=== PATIENT | female | born 1985 | race Caucasian/White ===

== ENCOUNTER 2016-10-10 22:02 | Emergency (ER) | payer SELFPAY ==
[~2016-10-10] VITALS: Ht 157.5 cm; Wt 57.0 kg
[~2016-10-10 22:02] MED LIST: HYDR-3498 PO; IBUP-1542 PO; NO MEDS; ONDA4TAB14 PO
[2016-10-10 22:57] VITALS: Ht 157.5 cm; Wt 57.0 kg
== END 2016-10-11 02:35 | disposition left against medical advice (07) ==
LOC: FTE 22:02
DX: Z53.21 Procedure and treatment not carried out due to patient leaving prior to being seen by health care provider (principal)

== ENCOUNTER 2016-10-30 20:30 | Emergency (ER) | payer SELFPAY ==
[~2016-10-30] VITALS: Ht 157.5 cm; Wt 58.1 kg
[2016-10-30 20:33] VITALS: Ht 157.5 cm; Wt 58.1 kg
[2016-10-31] MEDS ORDERED: ACETAMINOPHEN 325 MG TAB PO STA (00:06)
--- NOTE | 2016-10-31 00:21 | ERD ---
ER Documentation Chief Complaint Date/Time DATE: 10/31/16 TIME: 00:19 Chief Complaint 16 weeks , pelvic pain, back pain HPI Patient is a 31-year-old female who is who presents to the ED with left pelvic pain. Her last normal menstrual period was 07/08/17. She states that she is currently on Macrobid and has 3 doses left for UTI infection. She denies vaginal bleeding, cramping. She denies fever chills, nausea, vomiting or diarrhea, or Constipation. She denies abdominal pain. Denies abnormal vaginal discharge or itchiness. up to date with vaccines. denies headache, dizziness. no other complaints. ROS All systems reviewed and are negative except as per history of present illness. Medications Home Meds Active Scripts Ondansetron (Ondansetron Odt) 4 Mg Tab.rapdis, 4 MG PO Q6H Y for NAUSEA AND/OR VOMITING, #10 TAB Prov:MICH GARCIA. REPAIR CAMERAMAN 08/18/16 Hydrocodone Bit-Acetaminophen* ([place]*) 5-325 Mg Tab, 1 TAB PO Q6 Y for PAIN, # 15 TAB Prov:WILEY OBRIEN 12/01/15 Ibuprofen* (Ibuprofen*) 600 Mg Tablet, 600 MG PO Q6 for 15 Days, TAB Prov:CAMILLEWILEY C 12/01/15 Reported Medications [No Meds] No Conflict Check 04/30/11 Allergies Allergies: Coded Allergies: No Known Drug Allergy (Verified Allergy, Unknown, 04/30/11) No Known Allergy (Verified , 04/30/11) PMhx/Soc History of Surgery: Yes (appendectomy) Anesthesia Reaction: No Hx Neurological Disorder: No Hx Respiratory Disorders: Yes Hx Cardiac Disorders: No Hx Psychiatric Problems: No Hx Miscellaneous Medical Probl: No Hx Alcohol Use: No Hx Substance Use: No Hx Tobacco Use: No FmHx Family History: No coronary disease, No diabetes, No other Physical Exam Vitals Vital Signs Date Time Temp Pulse Resp B/P Pulse Ox O2 Delivery O2 Flow Rate FiO2 10/31/16 02:44 98.2 66 98/54 100 Room Air 10/30/16 20:33 98.9 74 20 116/58 100 Physical Exam GENERAL: Well-developed, well-nourished female. Appears in no acute distress. NECK: Supple. No lymphadenopathy or thyromegaly. No meningismus. negative kernig. negative brudinski. LUNG: Clear to auscultation bilaterally. No rhonchi, wheezing, rales or coarse breath sounds. HEART: Regular rate and rhythm. No murmurs, rubs or gallops. ABDOMEN: No scars, ecchymosis or rashes noted. Soft, nontender, and nondistended. Positive bowel sounds in all four quadrants. No rebound tenderness , no guarding. (-) McBurneys point tenderness. No CVA tenderness. tednerness in left pelvic area. BACK: No midline tenderness. Extremities: Equal pulses bilaterally. No peripheral clubbing, cyanosis or edema. No unilateral leg swelling. NEUROLOGIC: Alert and oriented. Moving all four extremities. 5/5 strength in all extremities. Normal speech. Steady gait. SKIN: Normal color. Warm and dry. No rashes or lesions. Capillary refill < 2 seconds Result Diagram: 10/31/16 0020 Results 24 hrs Laboratory Tests Test 10/31/16 00:20 10/31/16 00:23 Basophils # 0.010^3/ul Basophils % 0.3% Beta HCG, Quantitative 82166.0mIU/ml Eosinophils # 0.610^3/ul Eosinophils % 5.8% Hematocrit 33.8% Hemoglobin 11.6g/dl Lymphocytes # 2.810^3/ul Lymphocytes % 28.4% Mean Corpuscular Hemoglobin 29.5pg Mean Corpuscular Hemoglobin Concent 34.3g/dl Mean Corpuscular Volume 86.0fl Mean Platelet Volume 9.4fl Monocytes # 0.610^3/ul Monocytes % 5.8% Neutrophils # 5.910^3/ul Neutrophils % 59.4% Nucleated Red Blood Cells # 0.010^3/ul Nucleated Red Blood Cells % 0.0/100WBC Platelet Count 81633^3/UL Red Blood Count 3.9310^6/ul Red Cell Distribution Width 12.7% White Blood Count 9.910^3/ul Urine Bilirubin NEGATIVE Urine Clarity CLEAR Urine Color LT. YELLOW Urine Glucose NEGATIVE% Urine Hemoglobin NEGATIVE Urine Ketones NEGATIVE Urine Leukocyte Esterase NEGATIVE Urine Nitrite NEGATIVE Urine Specific [place] 1.010 Urine Total Protein NEGATIVE Urine Urobilinogen 0.2 E.U./dL Urine pH 6.0 Current Medications Medications (Trade) Dose Ordered Sig/Joellen Route PRN Reason Start Time Stop Time Status Last Admin Dose Admin Acetaminophen (Tylenol Tab) 650 mg ONCE STAT PO 10/31/16 00:06 10/31/16 00:07 DC 10/31/16 00:30 Procedures/MDM ER COURSE: I kept the patient and/or family informed of laboratory and diagnostic imaging results throughout the emergency room course. EKG, MONITORS, & DIAGNOSTIC IMAGING: [place] [id number] Radiology Main Line: [phone] DIAGNOSTIC IMAGING REPORT Patient: BABITA CRUZ : 1985 Age: 31 Sex: F MR #: [id number] DOS: 10/31/16 0006 Ordering MD: MALU MARSH PA-C Location: [facility] Room/Bed: PROCEDURE: US OB. CLINICAL INDICATION: Vaginal bleeding, pain. Clinical estimate gestational age is 16 weeks 3 days with estimated date of delivery 04/14/2017. TECHNIQUE: Multiple sonographic images of the pelvis were obtained. Transabdominal imaging only was performed. The images were reviewed on a PACS workstation. COMPARISON: 10/03/2016 FINDINGS: There is a single live intrauterine gestation. Cardiac activity is present with 137 beats per minute. There is a variable presentation. Measurements were made in order to determine age. The results are as follows: BPD = 3.54 cm, 16 weeks 6 days HC = 13.04 cm, 16 weeks 5 days AC = 11.88 cm, 17 weeks 4 days FL = 2.34 cm, 17 weeks 0 days. Estimated gestational age of approximately 17 weeks 0 days. The estimated date of delivery is 04/10/2017. The EFW = 187.42 g, 0 pounds 7 ounces, 90.9% The placenta is posterior and grade 0. There is no evidence for an abruption. There is a normal amount of amniotic fluid with a maximum vertical pocket of 3.7 cm. IMPRESSION: 1. Single live intrauterine gestation of approximately 17 weeks 0 days based on ultrasound measurements. 2. The estimated date of delivery is 04/10/2017. RPTAT: HJES .Adolfo Yip MD, Date Time Electronically viewed and signed by .Adolfo Yip MD, on 10/31/2016 01:06 .S/ CC: MALU MARSH PA-C MEDICATIONS: Tylenol. Tolerated well with no adverse reaction. LAB INTERPRETATION: CBC showed no evidence of systemic infection or severe anemia. . UA showed no evidence of leukocytes, nitrites or hematuria. MEDICAL DECISION MAKING: This is a 31 year old female who is who presents with pelvic pain. Vital signs were reviewed. Patient is afebrile. Patient is not hypoxic. Patient ultrasound as read by radiologist shows Single live intrauterine gestation of approximately 17 weeks 0 days based on ultrasound measurements. Low suspicion for ovarian torsion, PID, tuboovarian abscess, ectopic , bowel obstruction, pyelonephritis, UTI, appendicitis, cervicitis, septic , molar , HELLP syndrome, preeclampsia, eclampsia, placenta previa, placenta abruptia. DISCHARGE: At this time, patient is stable for discharge and outpatient management with no new complaints during the ER course. Patient was sent home with copies of imaging studies and lab and to follow up with her OB doctor. Patient will be discharged home with instructions to recheck for new or worsening symptoms such as fever, nausea, weakness, LOC and to follow up with primary care in the next 1 -2 days. Patient was advised to return to the ER for any new or worsening symptoms. Plan was discussed and patient and/or family understands and agrees. Home instructions were given. Departure Diagnosis: Primary Impression: Pelvic pain Condition: Stable MALU MARSH PA-C Oct 31, 2016 00:21
[2016-10-31 00:37] LABS: ADD SCAN DIFF NO
[2016-10-31 00:48] LABS: BASOPHILS % 0.3 % (0.0-2.0); EOSINOPHILS # 0.6 10^3/ul (0.0-0.5); EOSINOPHILS % 5.8 % (0.0-7.0); HEMATOCRIT 33.8 % (37.0-47.0); HEMOGLOBIN 11.6 g/dl (12.0-16.0); LYMPHOCYTES # 2.8 10^3/ul (0.8-2.9); LYMPHOCYTES % 28.4 % (15.0-51.0); MEAN CORPUSCULAR HEMOGLOBIN 29.5 pg (29.0-33.0); MEAN CORPUSCULAR HGB CONC 34.3 g/dl (32.0-37.0); MEAN PLATELET VOLUME 9.4 fl (7.4-10.4); MONOCYTE # 0.6 10^3/ul (0.3-0.9); MONOCYTES % 5.8 % (0.0-11.0); NEUTROPHIL # 5.9 10^3/ul (1.6-7.5); NEUTROPHILS % 59.4 % (39.0-77.0); PLATELET COUNT 329 10^3/UL (140-415); RED BLOOD COUNT 3.93 10^6/ul (4.20-5.40); RED CELL DISTRIBUTION WIDTH 12.7 % (11.5-14.5); WHITE BLOOD COUNT 9.9 10^3/ul (4.8-10.8)
[2016-10-31 00:54] LABS: ADD UMIC NO; URINE BILIRUBIN (Dip) NEGATIVE (NEGATIVE); URINE BLOOD (Dip) NEGATIVE (NEGATIVE); URINE COLOR LT. YELLOW (YELLOW); URINE GLUCOSE (Dip) NEGATIVE (NEGATIVE); URINE KETONES (Dip) NEGATIVE (NEGATIVE); URINE LEUKOCYTE ESTERASE (Dip) NEGATIVE (NEGATIVE); URINE NITRITE (Dip) NEGATIVE (NEGATIVE); URINE TOTAL PROTEIN (Dip) NEGATIVE (NEGATIVE); URINE UROBILINOGEN (Dip) 0.2 E.U./dL (0.1-1.0)
--- NOTE | 2016-10-31 01:06 | RADRPT ---
PROCEDURE: US OB. CLINICAL INDICATION: Vaginal bleeding, pain. Clinical estimate gestational age is 16 weeks 3 days with estimated date of delivery 04/14/2017. TECHNIQUE: Multiple sonographic images of the pelvis were obtained. Transabdominal imaging only w as performed. The images were reviewed on a PACS workstation. COMPARISON: 10/03/2016 FINDINGS: There is a single live intrauterine gestation. Cardiac activity is present with 137 beats per minut e. There is a variable presentation. Measurements were made in order to determine age. The results are as follows: BPD = 3.54 cm, 16 weeks 6 days HC = 13.04 cm, 16 weeks 5 days AC = 11.88 cm, 17 weeks 4 days FL = 2.34 cm, 17 weeks 0 days. Estimated gestational age of approximately 17 weeks 0 days. The estimated date of delivery is 04/10/2017. The EFW = 187.42 g, 0 pounds 7 ounces, 90.9% The placenta is posterior and grade 0. There is no evidence for an abruption. There is a normal amount of amniotic fluid with a maximum vertical pocket of 3.7 cm. IMPRESSION: 1. Single live intrauterine gestation of approximately 17 weeks 0 days based on ultrasound measurem ents. 2. The estimated date of delivery is 04/10/2017. RPTAT: HJES .Adolfo Yip MD, MD Date Time Electronically viewed and signed by .Adolfo Yip MD, on 10/31/2016 01:06 .S/
[2016-10-31 02:44] VITALS: BP 98/54; PULSE 66; TEMP 98.2
== END 2016-10-31 02:51 | disposition home or self-care (01) ==
LOC: FTE 20:30
DX: O26.892 Other specified pregnancy related conditions, second trimester (principal); R10.2 Pelvic and perineal pain; Z3A.17 17 weeks gestation of pregnancy
CPT/HCPCS: 76801; 81003; 84702; 85025; 86900; 86901

== ENCOUNTER 2016-11-14 12:45 | Emergency (ER) | payer MEDICAID ==
[~2016-11-14] VITALS: Ht 157.5 cm; Wt 58.0 kg
[2016-11-14 12:50] VITALS: Ht 157.5 cm; Wt 58.0 kg
[2016-11-14 16:16] LABS: ADD SCAN DIFF NO
[2016-11-14 16:19] LABS: BASOPHILS % 0.2 % (0.0-2.0); EOSINOPHILS # 0.5 10^3/ul (0.0-0.5); HEMATOCRIT 34.1 % (37.0-47.0); HEMOGLOBIN 11.6 g/dl (12.0-16.0); LYMPHOCYTES % 19.8 % (15.0-51.0); MEAN CORPUSCULAR HEMOGLOBIN 29.6 pg (29.0-33.0); MEAN PLATELET VOLUME 9.4 fl (7.4-10.4); MONOCYTE # 0.5 10^3/ul (0.3-0.9); MONOCYTES % 5.4 % (0.0-11.0); NEUTROPHIL # 6.9 10^3/ul (1.6-7.5); NEUTROPHILS % 69.3 % (39.0-77.0); PLATELET COUNT 343 10^3/UL (140-415); RED BLOOD COUNT 3.92 10^6/ul (4.20-5.40)
[2016-11-14] MEDS ORDERED: IBUPROFEN 200 MG TAB PO ONE (16:30)
--- NOTE | 2016-11-14 16:31 | RADRPT ---
PROCEDURE: US OB. CLINICAL INDICATION: Trauma due to a fall. Decreased motion. TECHNIQUE: Multiple sonographic images of the uterus were obtained. The images were revi ewed on a PACS workstation. COMPARISON: No prior studies are available for comparison. FINDINGS: There is a single live intrauterine gestation. heart rate is 152 beats per minute. Measurements were made in order to determine age. The results are as follows: BPD = 4.37 cm. HC = 15.82 cm. AC = 14.28 cm. FL = 3.02 cm. Estimated weight is 291 +/- 44 grams. LMP growth percentile is 70 %. Cervical length is 3.3 cm. The cervix is closed. The maximal denzel tical pocket of amniotic fluid is 7.7 cm. Menstrual age by ultrasound dates is 19 weeks 2 days. The estimated date of delivery is 04/08/2017. Position is variable and placenta is posterior right. There is no evidence for an abruption or place nta previa. IMPRESSION: 1. Single live intrauterine gestation of 19 weeks 2 days menstrual age by ultrasound dates. 2. The estimated date of delivery is 04/08/2017. RPTAT: QQ .Xavier Marina MD, Date Time Electronically viewed and signed by .Xavier Marina MD, on 11/14/2016 16:30 .R/
[2016-11-14 16:32] LABS: ALBUMIN 3.9 g/dl (3.3-4.9)
[2016-11-14 16:33] LABS: POTASSIUM 4.4 mmol/L (3.5-5.1)
[2016-11-14 16:35] LABS: ALBUMIN/GLOBULIN RATIO 1.18; BILIRUBIN,INDIRECT 0.3 mg/dl (0-1.1); BILIRUBIN,TOTAL 0.3 mg/dl (0.2-1.3); CREATININE 0.49 mg/dl (0.44-1.00); TOTAL PROTEIN 7.2 g/dl (6.1-8.1)
[2016-11-14 16:36] LABS: CALCIUM 9.3 mg/dl (8.4-10.2)
[2016-11-14 17:45] VITALS: BP 108/63; PULSE 63; RESP 20; TEMP 98.3
--- NOTE | 2016-11-14 18:35 | ERA ---
ER Documentation Chief Complaint Date/Time DATE: 11/14/16 TIME: 18:28 Chief Complaint CAME IN VIA INTAKE DUE FALL DUE TO DIZZY WITH ABD PAIN AND ESCORIATIONS HPI Patient presented 2 hours post fall caused by dizziness. Patient is 19 weeks . Patient denies knockout. Does report an adrenaline-like blackout where she cannot remember all the details because everything happened so fast. Does not think she hit her head and is not 100% sure if her abdomen was either which is what she is most concerned about because of her patient denies any chest pain, shortness of breath, leg swelling, headaches, dehydration , change in diet, palpitations. Patient was outside walking down the stairs at the time of the injury. patient did not fall down the stairs. ROS All systems reviewed and are negative except as per history of present illness. Medications Home Meds Active Scripts Ondansetron (Ondansetron Odt) 4 Mg Tab.rapdis, 4 MG PO Q6H Y for NAUSEA AND/OR VOMITING, #10 TAB Prov:MICH GARCIA FURNACE INSTALLER 08/18/16 Hydrocodone Bit-Acetaminophen* ([place]*) 5-325 Mg Tab, 1 TAB PO Q6 Y for PAIN, # 15 TAB Prov:CAMILLETABITHAWILEY C 12/01/15 Ibuprofen* (Ibuprofen*) 600 Mg Tablet, 600 MG PO Q6 for 15 Days, TAB Prov:CAMILLE,WILEY C 12/01/15 Reported Medications [No Meds] No Conflict Check 04/30/11 Allergies Allergies: Coded Allergies: No Known Drug Allergy (Verified Allergy, Unknown, 04/30/11) No Known Allergy (Verified , 04/30/11) PMhx/Soc History of Surgery: Yes (appendectomy) Anesthesia Reaction: No Hx Neurological Disorder: No Hx Respiratory Disorders: Yes Hx Cardiac Disorders: No Hx Psychiatric Problems: No Hx Miscellaneous Medical Probl: No Hx Alcohol Use: No Hx Substance Use: No Hx Tobacco Use: No Physical Exam Vitals Vital Signs Date Time Temp Pulse Resp B/P Pulse Ox O2 Delivery O2 Flow Rate FiO2 11/14/16 17:45 98.3 63 20 108/63 98 Room Air 11/14/16 12:50 98.3 96 18 132/64 100 Physical Exam Const: [] Head: Atraumatic, normocephalic Eyes: Normal Conjunctiva, PERRLA and extraocular movements intact ENT: Normal External Ears, Nose and Mouth. Neck: Full range of motion..~ No meningismus. Resp: Clear to auscultation bilaterally Cardio: Regular rate and rhythm, no murmurs Abd: Soft, non tender, non distended. Normal bowel sounds Skin: No petechiae or rashes Back: No midline or flank tenderness Ext: No cyanosis, or edema Neur: Awake and alert Psych: Normal Mood and Affect Result Diagram: 11/14/16 1600 11/14/16 1600 Results 24 hrs Laboratory Tests Test 11/14/16 16:00 Alanine Aminotransferase (ALT/SGPT) 23IU/L Albumin 3.9g/dl Albumin/Globulin Ratio 1.18 Alkaline Phosphatase 88IU/L Anion Gap 15 Aspartate Amino Transf (AST/SGOT) 21IU/L Basophils # 0.010^3/ul Basophils % 0.2% Blood Urea Nitrogen 9mg/dl Calcium Level 9.3mg/dl Carbon Dioxide Level 24mmol/L Chloride Level 105mmol/L Creatinine 0.49mg/dl Direct Bilirubin 0.00mg/dl Eosinophils # 0.510^3/ul Eosinophils % 5.0% Globulin 3.30g/dl Glucose Level 86mg/dl Hematocrit 34.1% Hemoglobin 11.6g/dl Indirect Bilirubin 0.3mg/dl Lymphocytes # 2.010^3/ul Lymphocytes % 19.8% Mean Corpuscular Hemoglobin 29.6pg Mean Corpuscular Hemoglobin Concent 34.0g/dl Mean Corpuscular Volume 87.0fl Mean Platelet Volume 9.4fl Monocytes # 0.510^3/ul Monocytes % 5.4% Neutrophils # 6.910^3/ul Neutrophils % 69.3% Nucleated Red Blood Cells # 0.010^3/ul Nucleated Red Blood Cells % 0.0/100WBC Platelet Count 50536^3/UL Potassium Level 4.4mmol/L Red Blood Count 3.9210^6/ul Red Cell Distribution Width 13.0% Sodium Level 140mmol/L Total Bilirubin 0.3mg/dl Total Protein 7.2g/dl White Blood Count 10.010^3/ul Current Medications Medications (Trade) Dose Ordered Sig/Joellen Route PRN Reason Start Time Stop Time Status Last Admin Dose Admin Ibuprofen (Motrin) 400 mg ONCE ONCE PO 11/14/16 16:30 11/14/16 16:31 DC 11/14/16 16:33 Procedures/MDM Patient is a 51 year old [place] female who is 19 weeks . Claims she was dizzy before falling and is now concerned about her . Patient had no symptoms prior to the fall. This time we will make sure that the abdomen was not entered and the fetus is okay. Ultrasound showed a healthy appearing fetus at this time she displayed no focal neurological finding, no severe headache, no evidence of head trauma on palpation. So I recommended iron/ ferrous sulfate, vitamin D and she denied since she already had these medications. And was compliant with her vitamins. There is a low therapeutic index for CT, this patient was discharged with instructions to return to the emergency room if neurological symptoms, new/worsening symptoms occur.. Departure Diagnosis: Primary Impression: Additional Impression: Dizziness Condition: Stable Patient Instructions: Dizziness Or Syncope (Fainting) During Additional Instructions: Return to emergency room if symptoms worsen or neurological signs develop. Continue to drink water and stay hydrated due to the extra volume that your body requires during . AMAURI LADD PA-C Nov 14, 2016 18:35
== END 2016-11-14 17:46 | disposition home or self-care (01) ==
LOC: FTE 12:45
DX: O99.89 Other specified diseases and conditions complicating pregnancy, childbirth and the puerperium (principal); R42 Dizziness and giddiness; Z3A.19 19 weeks gestation of pregnancy
CPT/HCPCS: 36415; 76805; 80053; 85025; Z7502; Z7610

== ENCOUNTER 2016-11-25 06:56 | Outpatient (CLI) | payer MEDICAID ==
[~2016-11-25] VITALS: Ht 160 cm; Wt 59.0 kg
[2016-11-25] MEDS ORDERED: PREN1TAB79 PO (07:11)
[2016-11-25 07:12] VITALS: BP 126/82; PULSE 85; RESP 20; Ht 160 cm; Wt 59.0 kg
[2016-11-25] MEDS ORDERED: TERBUTALINE 1 MG/ML INJ SC ONE ×2 (08:00→10:00)
[2016-11-25 08:01] LABS: ADD UMIC YES; URINE BILIRUBIN (Dip) NEGATIVE (NEGATIVE); URINE BLOOD (Dip) 3+ (NEGATIVE); URINE COLOR LT. YELLOW (YELLOW); URINE GLUCOSE (Dip) NEGATIVE (NEGATIVE); URINE KETONES (Dip) NEGATIVE (NEGATIVE); URINE LEUKOCYTE ESTERASE (Dip) NEGATIVE (NEGATIVE); URINE NITRITE (Dip) NEGATIVE (NEGATIVE); URINE TOTAL PROTEIN (Dip) NEGATIVE (NEGATIVE); URINE UROBILINOGEN (Dip) 0.2 E.U./dL (0.1-1.0)
--- NOTE | 2016-11-25 08:08 | RADRPT ---
PROCEDURE: Limited OB ultrasound CLINICAL INDICATION: Vaginal bleeding TECHNIQUE: Sonographic evaluation to assess the placenta was performed. Transabdominal imaging of the gravid uterus was performed. COMPARISON: No prior exam is available for comparison. FINDINGS: There is a single live intrauterine with cardiac activity, with a heart rate o f 154 bpm. position is breech. The placenta is posterior. There is no evidence of placental abruption or previa. The cervix is closed with a length of 4 cm. IMPRESSION: 1. There is no evidence of placental abruption or previa. 2. Breech presentation. RPTAT: HH .Alyson Laboy MD, MD Date Time Electronically viewed and signed by .Alyson Laboy MD, on 11/25/2016 08:07 .G/
[2016-11-25 08:27] LABS: BACTERIA,URINE MODERATE; URINE RBCS >200 /HPF (0)
[2016-11-25] MEDS ORDERED: LACTATED RINGER'S 1,000 ML IV ONE (08:30)
[2016-11-25 08:43] LABS: ADD SCAN DIFF NO
[2016-11-25 08:45] LABS: BASOPHILS % 0.1 % (0.0-2.0); EOSINOPHILS # 0.3 10^3/ul (0.0-0.5); EOSINOPHILS % 3.4 % (0.0-7.0); HEMATOCRIT 32.7 % (37.0-47.0); HEMOGLOBIN 11.2 g/dl (12.0-16.0); LYMPHOCYTES # 2.2 10^3/ul (0.8-2.9); LYMPHOCYTES % 26.6 % (15.0-51.0); MEAN CORPUSCULAR HEMOGLOBIN 30.4 pg (29.0-33.0); MEAN CORPUSCULAR HGB CONC 34.3 g/dl (32.0-37.0); MEAN CORPUSCULAR VOLUME 88.6 fl (82.0-101.0); MEAN PLATELET VOLUME 9.4 fl (7.4-10.4); MONOCYTE # 0.4 10^3/ul (0.3-0.9); MONOCYTES % 5.1 % (0.0-11.0); NEUTROPHIL # 5.4 10^3/ul (1.6-7.5); NEUTROPHILS % 64.6 % (39.0-77.0); PLATELET COUNT 300 10^3/UL (140-415); RED BLOOD COUNT 3.69 10^6/ul (4.20-5.40); RED CELL DISTRIBUTION WIDTH 12.9 % (11.5-14.5); WHITE BLOOD COUNT 8.4 10^3/ul (4.8-10.8)
== END 2016-11-25 10:45 | disposition home or self-care (01) ==
LOC: OBT 06:56 → L-D 06:57 → OBT 10:45
PROVIDERS: ATTEND Obstetrics & Gynecology
DX: O60.02 Preterm labor without delivery, second trimester (principal); Z3A.20 20 weeks gestation of pregnancy
CPT/HCPCS: 36415; 76815; 81001; 85025; 96360; 96361; 96372; J3105; J7120; Z7500; 81003; G0463

== ENCOUNTER 2016-12-11 04:11 | Outpatient (CLI) | payer MEDICAID ==
[~2016-12-11] VITALS: Ht 160 cm; Wt 60.6 kg
[~2016-12-11 04:11] MED LIST changes: -HYDR-3498 PO; -IBUP-1542 PO; -NO MEDS; -ONDA4TAB14 PO; +PREN1TAB79 PO
[2016-12-11 04:27] VITALS: BP 108/67; PULSE 65; RESP 17; Ht 160 cm; Wt 60.6 kg
[2016-12-11] MEDS ORDERED: LACTATED RINGER'S 500 ML IV ONE (05:00)
--- NOTE | 2016-12-11 05:19 | RADRPT ---
PROCEDURE: Limited OB ultrasound CLINICAL INDICATION: Vaginal bleeding TECHNIQUE: Sonographic evaluation to assess the placenta was performed. Transabdominal imaging of the gravid uterus was performed. COMPARISON: No prior exam is available for comparison. FINDINGS: There is a single live intrauterine with cardiac activity, with a heart rate o f 150 bpm. position is breech. The placenta is posterior. There is no evidence of placental abruption or previa. The cervix is closed with a length of 4 cm. IMPRESSION: 1. Posterior placenta without evidence of placental abruption or previa. 2. The cervix is closed with a length of 4 cm. RPTAT: HH .Alyson Laboy MD, Date Time Electronically viewed and signed by .Alyson Laboy MD, on 12/11/2016 05:19 .G/
[2016-12-11 05:25] LABS: ADD SCAN DIFF NO
[2016-12-11 05:33] LABS: ADD UMIC YES; URINE BILIRUBIN (Dip) NEGATIVE (NEGATIVE); URINE BLOOD (Dip) 2+ (NEGATIVE); URINE COLOR LT. YELLOW (YELLOW); URINE GLUCOSE (Dip) NEGATIVE (NEGATIVE); URINE KETONES (Dip) NEGATIVE (NEGATIVE); URINE LEUKOCYTE ESTERASE (Dip) NEGATIVE (NEGATIVE); URINE NITRITE (Dip) NEGATIVE (NEGATIVE); URINE TOTAL PROTEIN (Dip) NEGATIVE (NEGATIVE); URINE UROBILINOGEN (Dip) 0.2 E.U./dL (0.1-1.0)
[2016-12-11 05:45] LABS: BASOPHILS % 0.4 % (0.0-2.0); EOSINOPHILS # 0.5 10^3/ul (0.0-0.5); EOSINOPHILS % 5.7 % (0.0-7.0); HEMATOCRIT 33.9 % (37.0-47.0); HEMOGLOBIN 11.1 g/dl (12.0-16.0); LYMPHOCYTES # 2.1 10^3/ul (0.8-2.9); LYMPHOCYTES % 25.8 % (15.0-51.0); MEAN CORPUSCULAR HEMOGLOBIN 28.8 pg (29.0-33.0); MEAN CORPUSCULAR HGB CONC 32.7 g/dl (32.0-37.0); MEAN CORPUSCULAR VOLUME 87.8 fl (82.0-101.0); MEAN PLATELET VOLUME 9.8 fl (7.4-10.4); MONOCYTE # 0.5 10^3/ul (0.3-0.9); MONOCYTES % 6.5 % (0.0-11.0); NEUTROPHIL # 5.1 10^3/ul (1.6-7.5); NEUTROPHILS % 61.4 % (39.0-77.0); PLATELET COUNT 323 10^3/UL (140-415); RED BLOOD COUNT 3.86 10^6/ul (4.20-5.40); RED CELL DISTRIBUTION WIDTH 13.1 % (11.5-14.5); WHITE BLOOD COUNT 8.3 10^3/ul (4.8-10.8)
[2016-12-11 05:48] LABS: BARBITURATES Negative (NEGATIVE); BENZODIAZEPINES Negative (NEGATIVE); CANNABINOIDS Negative (NEGATIVE); COCAINE Negative (NEGATIVE)
[2016-12-11 05:49] LABS: OPIATES Negative (NEGATIVE)
[2016-12-11] MEDS ORDERED: LACTATED RINGER'S 1,000 ML IV SCH (06:00)
[2016-12-11 06:01] LABS: SQUAMOUS EPITHELIAL CELL,UR RARE
[2016-12-11] MEDS ORDERED: TERBUTALINE 1 MG/ML INJ SC ONE (06:30)
--- NOTE | 2016-12-11 07:10 | PN ---
Date/Time of Note Date/Time of Note DATE: 12/11/16 TIME: 06:58 OB Subjective Subjective Subjective vaginal bleeding early this morning after sexual intercourse f/b lower abdominal cramping pain similar episodes 2weeks ago brought here for observation october 31 november 25 feels better after hydration OB Objective Objective Objective EFM uterine contraction s nild 2-5 u/s no abruptio or placenta previa and cervical length 4cm fnt 150's no vaginal bleeding noted cbc nl u/a only ++ blood uds neg blood type and rh pending OB Assessment/Plan Other Assessment: IUP 22w6d postcoital bleeding Other plan: d/s home with routine instructions ALYSSA FLETCHER MD Dec 11, 2016 07:09
--- NOTE | 2016-12-11 07:12 | TRIAGE ---
OB Triage Datetime Report Generated by CPN: 12/11/2016 07:11 Datetime: 12/11/2016 06:15 Stage of : OB Triage Labor Evaluation Frequency: 2-6 Monitor Mode: External Duration (sec)2399: 40-60 Quality: Mild Pattern: Normal: <= 5 Contractions in 10 Minutes Resting Tone [place]: Relaxed Heart Rate FHR Baseline Rate: 150 Monitor Mode: External US Variability: Minimal - Undetectable to <=5 bpm Accelerations: 10X10 Decelerations: None Category: Category II Comments: APPROPRIATE FOR GESATATIONAL AGE. Pain Assessment Pain Scale: 5 Pain Presence: Intermittent Pain Type: Cramping Pain Location: Abdomen Pain Goal: 0 Pain Relief Measures: Comfort Measures Datetime: 12/11/2016 06:12 Stage of : OB Triage Pain Assessment Pain Scale: 5 Pain Presence: Intermittent Pain Type: Cramping Pain Location: Abdomen Pain Goal: 0 Pain Relief Measures: Comfort Measures Datetime: 12/11/2016 05:15 Stage of : OB Triage Labor Evaluation Frequency: 3-4 Monitor Mode: External Duration (sec)2399: 50-60 Quality: Mild Pattern: Normal: <= 5 Contractions in 10 Minutes Resting Tone [place]: Relaxed Heart Rate FHR Baseline Rate: 140 Monitor Mode: External US Variability: Minimal - Undetectable to <=5 bpm Accelerations: 15X15 Decelerations: Variable Comments: APPROPRIATE FOR GESTATIONAL AGE Datetime: 12/11/2016 04:21 Time of Arrival: 12/11/2016 04:08 EGA: 22.6 Arrived By: Wheelchair Arrived From: Home Chief Complaint: C/O BLEEDING @0240 AND STATES FILLED ONE PAD WITH BLOOD AT HOME AND CAME IN THE HOSPITAL WITH [facility] AMOUNT OF BRIGHT RED BLOOD ON THE PAD. Movement: Present Contractions: Regular Time Contractions Began: 12/11/2016 03:10 Contractions: q5 minutes Rupture of Membranes: Denies Vaginal Bleeding: Moderate Vaginal Discharge: Denies Recent Sexual Intercouse: Yes Abdominal Trauma: Not Applicable Patient Complaints: Cramping; Nausea; Vomiting Additional Patient Complaints: H/O NAUSEA AND VOMITING (12/10/16) Time Provider Notified: 12/11/2016 04:37 Provider Notified: Ivett WATT Initial Plan: EFM, CBC AND TYPE _ SCREEN, UA, DRUG SCREEN, CVL, PLACENTA Datetime: 12/11/2016 04:16 Stage of : OB Triage Maternal Assessment Level of Consciousness: Fully Conscious Headache: Denies Blurred Vision: No Respiratory Effort: Unlabored Nausea/Vomiting: Hx of Nausea/Vomiting RUQ Epigastric Pain: Denies Facial Edema: None Monitor Mode: External Contraction Comments: APPLIED Monitor Mode: External US Comments: FHR 150'S Pain Assessment Pain Scale: 7 Pain Presence: Intermittent Pain Type: Cramping Pain Location: Abdomen Pain Goal: 0 Datetime: 11/25/2016 10:31 Pain Assessment Pain Scale: 0 Pain Presence: None/Denies Pain Type: N/A Datetime: 11/25/2016 09:54 Labor Evaluation Frequency: X1 Monitor Mode: External Duration (sec)2399: 30-40 Resting Tone [place]: Relaxed Pain Assessment Pain Scale: 3 Pain Presence: Intermittent Pain Type: Cramping Pain Location: Abdomen Pain Goal: 0 Pain Relief Measures: Comfort Measures Datetime: 11/25/2016 09:24 Labor Evaluation Frequency: 0 Monitor Mode: External Resting Tone [place]: Relaxed Pain Assessment Pain Scale: 4 Pain Presence: Intermittent Pain Type: Cramping Pain Location: Abdomen Pain Relief Measures: Comfort Measures Datetime: 11/25/2016 08:40 Monitor Mode: External Comments: BACK ON MONITOR Datetime: 11/25/2016 08:07 Stage of : OB Triage Monitor Mode: External Pain Assessment Pain Scale: 5 Pain Presence: Intermittent Pain Type: Cramping Pain Location: Abdomen Pain Relief Measures: Comfort Measures Datetime: 11/25/2016 07:09 Stage of : OB Triage Assessment Type: Triage Maternal Assessment Level of Consciousness: Fully Conscious DTR's/Clonus: DTRs 2+; No Clonus Headache: Denies Blurred Vision: No Respiratory Effort: Unlabored; Regular Rhythm; Equal Expansion Breath Sounds, Left: Clear and Equal Breath Sounds, Right: Clear and Equal Nausea/Vomiting: Denies RUQ Epigastric Pain: Denies Lower Extremities Edema: None Degree: None Upper Extremities Edema: None Degree: None Facial Edema: None Temperature Route: Oral Fall Risk Assessment History of Falling: (0) No Secondary Diagnosis: (0) No Ambulatory Aid: (0) Bedrest/Nurse Assist IV Therapy: (0) No Gait: (0) Normal/Bedrest/Immobile Mental Status: (0) Oriented to Own Ability Fall Score: 0 Fall Risk Score Definition: No Risk: No action required Labor Evaluation Frequency: 0 Monitor Mode: External Monitor Mode: Doppler (Annotations: FHT IN 140) Pain Assessment Pain Scale: 5 Pain Presence: Intermittent Pain Type: Cramping Pain Location: Abdomen Datetime: 11/25/2016 07:08 Time of Arrival: 11/25/2016 06:54 EGA: 20.4 Arrived By: Wheelchair Arrived From: Home Chief Complaint: BLEEDING- RED BRIGHT AFTER INTERCOURSE Contractions: Denies/Absent Rupture of Membranes: Denies Vaginal Bleeding: Bright Red Vaginal Discharge: Denies Recent Sexual Intercouse: Yes Abdominal Trauma: Not Applicable Patient Complaints: Other Additional Patient Complaints: TOCO, FHT Time Provider Notified: 11/25/2016 07:34 Provider Notified: DR. REVELES Initial Plan: US, UA, TERB, PO HYDRATION, CBC, CERVICAL LENGTH AND IV HYDRATION
== END 2016-12-11 07:08 | disposition home or self-care (01) ==
LOC: OBT 04:11 → L-D 04:12 → OBT 07:08
PROVIDERS: ATTEND Obstetrics & Gynecology
DX: O26.892 Other specified pregnancy related conditions, second trimester (principal); N93.0 Postcoital and contact bleeding; Z3A.22 22 weeks gestation of pregnancy
CPT/HCPCS: 36415; 76816; 76817; 80307; 81001; 85025; 86850; 86900; 86901; 96360; 96361; 96372; J3105; J7120; Z7500; 81003; G0463

== ENCOUNTER 2017-02-17 17:32 | Outpatient (CLI) | payer MEDICAID ==
[~2017-02-17] VITALS: Ht 162.6 cm; Wt 65.9 kg
[2017-02-17 18:05] VITALS: Ht 162.6 cm; Wt 65.9 kg
[2017-02-17 18:06] VITALS: BP 107/67; RESP 20
[2017-02-17] MEDS ORDERED: LACTATED RINGER'S 1,000 ML IV SCH (18:30)
[2017-02-17] MEDS ORDERED: TERBUTALINE 1 MG/ML INJ SC ONE (18:30)
--- NOTE | 2017-02-17 19:07 | RADRPT ---
PROCEDURE: Limited obstetric ultrasound CLINICAL INDICATION: PTL TECHNIQUE: Multiple transverse and longitudinal grayscale images of the pelvis were obtained de leon sabdominally and endovaginally.. COMPARISON: same day FINDINGS: There is a single live intrauterine gestation in a vertex position with a heart rate of 150 bp m. The placenta is fundal. There is no evidence of a placental abruption. The cervix is closed and measures 3.0 cm in length. RPTAT: AA IMPRESSION: The cervix is closed and measures 3.0 cm in length. Physician Romulo Date Time Electronically viewed and signed by Physician Romulo on 02/17/2017 19:06 /
[2017-02-17 19:19] LABS: ADD SCAN DIFF NO
[2017-02-17 19:22] LABS: BASOPHILS % 0.2 % (0.0-2.0); EOSINOPHILS # 0.3 10^3/ul (0.0-0.5); HEMATOCRIT 32.3 % (37.0-47.0); HEMOGLOBIN 10.9 g/dl (12.0-16.0); LYMPHOCYTES # 2.4 10^3/ul (0.8-2.9); LYMPHOCYTES % 18.7 % (15.0-51.0); MEAN CORPUSCULAR HEMOGLOBIN 28.2 pg (29.0-33.0); MEAN CORPUSCULAR HGB CONC 33.7 g/dl (32.0-37.0); MEAN CORPUSCULAR VOLUME 83.7 fl (82.0-101.0); MEAN PLATELET VOLUME 10.4 fl (7.4-10.4); MONOCYTE # 0.8 10^3/ul (0.3-0.9); NEUTROPHIL # 9.3 10^3/ul (1.6-7.5); NEUTROPHILS % 72.8 % (39.0-77.0); PLATELET COUNT 277 10^3/UL (140-415); RED BLOOD COUNT 3.86 10^6/ul (4.20-5.40); RED CELL DISTRIBUTION WIDTH 12.1 % (11.5-14.5); WHITE BLOOD COUNT 12.8 10^3/ul (4.8-10.8)
[2017-02-17 19:53] LABS: ADD UMIC YES; UR BILIRUBIN (Dip) NEGATIVE (NEGATIVE); UR BLOOD (Dip) NEGATIVE (NEGATIVE); UR CLARITY CLOUDY (CLEAR); UR COLOR LT. YELLOW (YELLOW); UR GLUCOSE (Dip) NEGATIVE (NEGATIVE); UR KETONES (Dip) NEGATIVE (NEGATIVE); UR LEUKOCYTE ESTERASE (Dip) 2+ (NEGATIVE); UR NITRITE (Dip) NEGATIVE (NEGATIVE); UR TOTAL PROTEIN (Dip) NEGATIVE (NEGATIVE); UR UROBILINOGEN (Dip) 0.2 E.U./dL (0.1-1.0)
--- NOTE | 2017-02-17 20:01 | PN ---
Triage Information Date/Time 02/17/2017 Weeks of Gestation 32.4 : 2 Para: 1 Diabetes: none Hypertention: none Additional information C/O UC since 1600 02/17/2017 denies ROM and vaginal bleeding Objective Vital Signs Date Time Temp Pulse Resp B/P Pulse Ox O2 Delivery O2 Flow Rate FiO2 02/17/17 18:06 98.4 20 107/67 Room Air Heart Rate: 150's Heart Rate Comments FHTs are R had occsional UC Q 10 min on admission Exam closed Results/Medications Result Diagram: 02/17/17 1845 Results 24 hrs Laboratory Tests Test 02/17/17 18:45 White Blood Count 12.8 #H Red Blood Count 3.86 L Hemoglobin 10.9 L Hematocrit 32.3 L Mean Corpuscular Volume 83.7 Mean Corpuscular Hemoglobin 28.2 L Mean Corpuscular Hemoglobin Concent 33.7 Red Cell Distribution Width 12.1 Platelet Count 277 Mean Platelet Volume 10.4 Neutrophils % 72.8 Lymphocytes % 18.7 Monocytes % 6.0 Eosinophils % 2.0 Basophils % 0.2 Nucleated Red Blood Cells % 0.0 Neutrophils # 9.3 H Lymphocytes # 2.4 Monocytes # 0.8 Eosinophils # 0.3 Basophils # 0.0 Nucleated Red Blood Cells # 0.0 Medications Current Medications Lactated Ringer's (Lr) 1,000 ml @ 200 mls/hr Q5H IV Last administered on t 19:03; Admin Dose 200 MLS/HR; Start 02/17/17 at 18:30 Imaging Results cervical length 3 cm Assessment/Plan uterine contractions at 32 + weeks : reolved with IV hydration and SQ terbutaline will follow as out patient on bed + pelvic rest CANDY MELENDEZ MD Feb 17, 2017 20:01
[2017-02-17 20:27] LABS: UR BACTERIA FEW; UR SQUAMOUS EPITHELIAL CELL FEW; URINE RBCS 0-2 /HPF (0)
--- NOTE | 2017-02-17 21:04 | TRIAGE ---
OB Triage Datetime Report Generated by CPN: 02/17/2017 21:04 Datetime: 02/17/2017 21:00 Stage of : OB Triage Datetime: 02/17/2017 20:13 Monitor Mode: Palpation Resting Tone [place]: Relaxed Datetime: 02/17/2017 20:06 Monitor Mode: Palpation Resting Tone [place]: Relaxed Datetime: 02/17/2017 19:01 Labor Evaluation Frequency: NONE NOTED Monitor Mode: External Pattern: Normal: <= 5 Contractions in 10 Minutes Contraction Comments: SCATTERED IRRITABILITY NOTED. ABDOMEN SOFT TO PALPATION Heart Rate FHR Baseline Rate: 150 Monitor Mode: External US FHR Baseline Changes: No Baseline Change Variability: Moderate 6-25 bpm Accelerations: 15X15 Decelerations: None Category: Category I Datetime: 02/17/2017 18:34 Vaginal Exam Dilatation (cms): 0.0 Effacement (%): 20 Station: -4 Exam By: DDUNN Membrane Status: Intact Vaginal Bleeding: None Cervix, Consistency: Moderate Cervix, Position: Midposition Presentation 'A': Unable to Assess Datetime: 02/17/2017 18:20 Labor Evaluation Frequency: OCCASIONAL Monitor Mode: External Duration (sec)2399: 60-80 Pattern: Normal: <= 5 Contractions in 10 Minutes Resting Tone [place]: Relaxed Heart Rate FHR Baseline Rate: 140 Monitor Mode: External US FHR Baseline Changes: No Baseline Change Variability: Moderate 6-25 bpm Accelerations: 15X15 Decelerations: None Category: Category I Datetime: 02/17/2017 18:08 Monitor Mode: External US Datetime: 02/17/2017 18:02 Assessment Type: Triage Maternal Assessment Level of Consciousness: Fully Conscious DTR's/Clonus: DTRs 2+; No Clonus Headache: Denies Blurred Vision: No Respiratory Effort: Unlabored; Regular Rhythm; Equal Expansion Breath Sounds, Left: Clear and Equal Breath Sounds, Right: Clear and Equal Nausea/Vomiting: Denies RUQ Epigastric Pain: Denies Lower Extremities Edema: None Degree: None Upper Extremities Edema: None Degree: None Facial Edema: None Fall Risk Assessment History of Falling: (0) No Secondary Diagnosis: (0) No Ambulatory Aid: (0) Bedrest/Nurse Assist IV Therapy: (0) No Gait: (0) Normal/Bedrest/Immobile Mental Status: (0) Oriented to Own Ability Fall Score: 0 Fall Risk Score Definition: No Risk: No action required Datetime: 02/17/2017 18:00 Time of Arrival: 02/17/2017 17:30 EGA: 32.4 Arrived By: Wheelchair Arrived From: Home Chief Complaint: CONTRACTIONS Movement: Present Contractions: Occasional Time Contractions Began: 02/17/2017 16:15 Rupture of Membranes: Denies Vaginal Bleeding: None Vaginal Discharge: Denies Recent Sexual Intercouse: Denies Abdominal Trauma: Not Applicable Patient Complaints: Contractions Time Provider Notified: 02/17/2017 18:24 Provider Notified: SAMANTHA Initial Plan: NST Datetime: 12/11/2016 04:21 EGA: 22.6 Datetime: 11/25/2016 07:09 Fall Score: 0 Fall Risk Score Definition: No Risk: No action required Datetime: 11/25/2016 07:08 EGA: 20.4
== END 2017-02-17 21:00 | disposition home or self-care (01) ==
LOC: OBT 17:32 → L-D 17:32 → OBT 21:00
PROVIDERS: ATTEND Obstetrics & Gynecology
DX: O62.9 Abnormality of forces of labor, unspecified (principal); Z3A.32 32 weeks gestation of pregnancy
CPT/HCPCS: 76817; 81001; 85025; J3105; J7120

== ENCOUNTER 2017-04-02 20:38 | Outpatient (CLI) | payer MEDICAID ==
[~2017-04-02] VITALS: Ht 160 cm; Wt 71.8 kg
[2017-04-02 20:59] VITALS: Ht 160 cm; Wt 71.8 kg
[2017-04-02] MEDS ORDERED: ACETAMINOPHEN 500 MG TAB PO STA (22:15)
--- NOTE | 2017-04-02 22:47 | RADRPT ---
PROCEDURE: US OB biophysical profile. CLINICAL INDICATION: decreased movements, labor pain TECHNIQUE: Multiple sonographic images of the pelvis were obtained. The images were reviewed on a PACS workstation. COMPARISON: 02/17/2017 FINDINGS: There is a single viable intrauterine gestation. Cardiac activity is present with 148 beats per min noah. There is a vertex presentation. The placenta is anterior fundal. There is no evidence of placental abruption. There is a normal amount of amniotic fluid with an DOTTIE = 11.4 cm. Biophysical profile: movement 2/2 tone 2/2. breathing 2/2 DOTTIE 2/2 Total 04/08 RPTAT: AA . IMPRESSION: Normal biophysical profile. . .Mitesh Chacko MD, MD Date Time Electronically viewed and signed by .Mitesh Chacko MD, MD on 04/02/2017 22:46 .S/
--- NOTE | 2017-04-03 01:53 | TRIAGE ---
OB Triage Datetime Report Generated by CPN: 04/03/2017 01:53 Datetime: 04/03/2017 01:46 Stage of : OB Triage Datetime: 04/03/2017 01:35 Labor Evaluation Frequency: 2-5 Monitor Mode: External Duration (sec)2399: 60-80 Pattern: Normal: <= 5 Contractions in 10 Minutes Heart Rate FHR Baseline Rate: 145 Monitor Mode: External US FHR Baseline Changes: No Baseline Change Datetime: 04/03/2017 01:27 Vaginal Exam Dilatation (cms): 1.5 Effacement (%): 40 Station: -2 Exam By: GSTRATTON Vaginal Bleeding: Small Cervix, Consistency: Moderate Cervix, Position: Midposition Presentation 'A': Cephalic Datetime: 04/03/2017 01:00 Labor Evaluation Frequency: 5-8 Monitor Mode: External Duration (sec)2399: 90-120 Pattern: Normal: <= 5 Contractions in 10 Minutes Heart Rate FHR Baseline Rate: 145 Monitor Mode: External US FHR Baseline Changes: No Baseline Change Variability: Moderate 6-25 bpm Datetime: 04/03/2017 00:00 Labor Evaluation Frequency: 7-10 Monitor Mode: External Duration (sec)2399: 70-100 Pattern: Normal: <= 5 Contractions in 10 Minutes Heart Rate FHR Baseline Rate: 135 Monitor Mode: External US FHR Baseline Changes: No Baseline Change Variability: Moderate 6-25 bpm Accelerations: 15X15 Decelerations: None Datetime: 04/02/2017 23:47 Vaginal Exam Dilatation (cms): 1.0 Effacement (%): 40 Station: -2 Exam By: JONEL IBARRA Vaginal Bleeding: Small Cervix, Consistency: Moderate Cervix, Position: Posterior Presentation 'A': Cephalic Datetime: 04/02/2017 23:00 Labor Evaluation Frequency: 10 Monitor Mode: External Duration (sec)2399: 90-110 Pattern: Normal: <= 5 Contractions in 10 Minutes Heart Rate FHR Baseline Rate: 145 Monitor Mode: External US FHR Baseline Changes: No Baseline Change Variability: Moderate 6-25 bpm Accelerations: 15X15 Datetime: 04/02/2017 22:00 Labor Evaluation Frequency: 7-10 Monitor Mode: External Duration (sec)2399: 60-90 Pattern: Normal: <= 5 Contractions in 10 Minutes Heart Rate FHR Baseline Rate: 145 Monitor Mode: External US FHR Baseline Changes: No Baseline Change Variability: Moderate 6-25 bpm Accelerations: 15X15 Decelerations: None Datetime: 04/02/2017 21:03 Assessment Type: Triage Maternal Assessment Level of Consciousness: Fully Conscious Headache: Denies Blurred Vision: No Respiratory Effort: Unlabored; Regular Rhythm; Equal Expansion Nausea/Vomiting: Denies RUQ Epigastric Pain: Denies Facial Edema: None Fall Risk Assessment History of Falling: (0) No Secondary Diagnosis: (0) No Ambulatory Aid: (0) Bedrest/Nurse Assist IV Therapy: (0) No Gait: (0) Normal/Bedrest/Immobile Mental Status: (0) Oriented to Own Ability Fall Score: 0 Fall Risk Score Definition: No Risk: No action required Datetime: 04/02/2017 21:02 Time of Arrival: 04/02/2017 20:35 EGA: 38.6 Arrived By: Wheelchair Arrived From: Home Chief Complaint: UC'S SINCE 18:00 Movement: Present Contractions: Regular Time Contractions Began: 04/02/2017 18:00 Contractions: Q10MIN Rupture of Membranes: Denies Vaginal Bleeding: None Vaginal Discharge: Denies Recent Sexual Intercouse: Denies Abdominal Trauma: Not Applicable Patient Complaints: Contractions Time Provider Notified: 04/03/2017 21:40 Provider Notified: ARDALAN Initial Plan: EFM, SVE, CALL OB Datetime: 04/02/2017 21:01 Monitor Mode: Palpation Resting Tone [place]: Relaxed Monitor Mode: External US Datetime: 04/02/2017 20:47 Monitor Mode: Palpation Quality: Mild Vaginal Exam Dilatation (cms): 1.0 Effacement (%): 40 Station: -2 Exam By: GSTRATTON Cervix, Position: Posterior Presentation 'A': Cephalic Datetime: 04/02/2017 20:46 Stage of : OB Triage Pain Assessment Pain Scale: 7 Pain Presence: Intermittent Pain Type: Contraction Pain Location: Abdomen Pain Relief Measures: Comfort Measures Datetime: 04/02/2017 20:45 Stage of : OB Triage Datetime: 02/17/2017 18:02 Fall Score: 0 Fall Risk Score Definition: No Risk: No action required Datetime: 02/17/2017 18:00 EGA: 32.4 Datetime: 12/11/2016 04:21 EGA: 22.6 Datetime: 11/25/2016 07:09 Fall Score: 0 Fall Risk Score Definition: No Risk: No action required Datetime: 11/25/2016 07:08 EGA: 20.4
--- NOTE | 2017-04-03 07:12 | PN ---
Triage Information Date/Time April 02, 2017 Reason for visit: Uterine contractions Weeks of Gestation 38 weeks and 6 days /Para 2 para 1 Additional information 31-year-old with IUP at 39 weeks and 6 days with care with Dr. Mcqueen presented with complaint of uterine contractions and was noted to be 1 cm dilated at 40 and -3. Complaint of lower abdominal pain and back pain. She denies any leaking of fluid, vaginal bleeding or decreased movement. Denies any other complaints. Objective Heart Rate: 130's Exam Contractions every 3-4 minutes General appearance: Alert and oriented 4. Patient appears to be in mild distress. Abdomen: Soft gravid, nontender, no rebound tenderness, no guarding, no rigidity , fundal height consistent with gestational age. Extremities: No calf tenderness, no click no edema NST: Category 1 vaginal exam 1 cm 40-3 Patient had been observed and ambulated and after hydration there was no cervical change. Results/Medications Imaging Results PROCEDURE: US OB biophysical profile. CLINICAL INDICATION: decreased movements, labor pain TECHNIQUE: Multiple sonographic images of the pelvis were obtained. The images were reviewed on a PACS workstation. COMPARISON: 02/17/2017 FINDINGS: There is a single viable intrauterine gestation. Cardiac activity is present with 148 beats per minute. There is a vertex presentation. The placenta is anterior fundal. There is no evidence of placental abruption. There is a normal amount of amniotic fluid with an DOTTIE = 11.4 cm. Biophysical profile: movement 2/2 tone 2/2. breathing 2/2 DOTTIE 2/2 Total 8 RPTAT: AA . IMPRESSION: Normal biophysical profile. Assessment/Plan IUP at 38 weeks and 6/7 False labor pain No evidence of labor DOTTIE normal testing reassuring Will be discharged home Follow-up with primary OB in 24 hours to 48 hours Strict labor precaution and kick count discussed Patient verbalized understanding BREANN DEL TORO MD Apr 03, 2017 07:11
== END 2017-04-03 01:46 | disposition home or self-care (01) ==
LOC: OBT 20:38 → L-D 20:39 → OBT 04-03 01:46
PROVIDERS: ATTEND Obstetrics & Gynecology
DX: O47.1 False labor at or after 37 completed weeks of gestation (principal); O36.8130 Decreased fetal movements, third trimester, not applicable or unspecified; Z3A.38 38 weeks gestation of pregnancy
CPT/HCPCS: 76818; Z7500; Z7610; G0463

== ENCOUNTER 2017-04-03 15:36 | Inpatient (IN) | payer MEDICAID ==
[~2017-04-03] VITALS: Ht 160 cm; Wt 70.7 kg
[2017-04-03 16:15] VITALS: BP 118/66; PULSE 75; Ht 160 cm; Wt 70.7 kg
[2017-04-03] MEDS ORDERED: BUTORPHANOL 2 MG INJ IV PRN ×2 (16:30)
[2017-04-03] MEDS ORDERED: OXYTOCIN 30 UNITS/LR 500 ML IV SCH ×2 (16:30)
[2017-04-03] MEDS ORDERED: METHYLERGONOVINE 0.2 MG INJ IM PRN (16:30)
[2017-04-03] MEDS ORDERED: CARBOPROST 250 MCG INJ IM PRN (16:30)
[2017-04-03] MEDS ORDERED: OXYTOCIN 30 UNITS/LR 500 ML IV PRN (16:30)
[2017-04-03] MEDS ORDERED: LIDOCAINE 1% (MPF) 30 ML INJ INJ PRN (16:30)
[2017-04-03] MEDS ORDERED: MISOPROSTOL 200 MCG TAB PR PRN (16:30)
[2017-04-03] MEDS ORDERED: LACTATED RINGER'S 1,000 ML IV PRN (16:30)
[2017-04-03] MEDS: LACTATED RINGER'S 1,000 ML IV SCH (16:45)
[2017-04-03 17:15] LABS: BASOPHILS % 0.2 % (0.0-2.0); EOSINOPHILS # 0.2 10^3/ul (0.0-0.5); EOSINOPHILS % 2.1 % (0.0-7.0); HEMATOCRIT 31.3 % (37.0-47.0); HEMOGLOBIN 10.4 g/dl (12.0-16.0); LYMPHOCYTES # 1.8 10^3/ul (0.8-2.9); LYMPHOCYTES % 20.9 % (15.0-51.0); MEAN CORPUSCULAR HEMOGLOBIN 27.2 pg (29.0-33.0); MEAN CORPUSCULAR HGB CONC 33.2 g/dl (32.0-37.0); MEAN CORPUSCULAR VOLUME 81.7 fl (82.0-101.0); MEAN PLATELET VOLUME 11.2 fl (7.4-10.4); MONOCYTE # 0.6 10^3/ul (0.3-0.9); MONOCYTES % 7.3 % (0.0-11.0); NEUTROPHIL # 5.9 10^3/ul (1.6-7.5); NEUTROPHILS % 69.1 % (39.0-77.0); PLATELET COUNT 255 10^3/UL (140-415); RED BLOOD COUNT 3.83 10^6/ul (4.20-5.40); RED CELL DISTRIBUTION WIDTH 13.2 % (11.5-14.5); WHITE BLOOD COUNT 8.6 10^3/ul (4.8-10.8)
[2017-04-03 17:19] LABS: INR 0.95; PARTIAL THROMBOPLASTIN TIME 28.8 Sec (25.0-35.0); PROTIME 12.7 Sec (12.2-14.2)
[2017-04-03] MEDS ORDERED: MINERAL OIL LIGHT 10 ML VIAL TOP PRN (18:00)
--- NOTE | 2017-04-03 18:08 | HP ---
Date/Time of Note Date/Time of Note DATE: 04/03/17 TIME: 18:05 OB - History Hx of Present Free Text/Dictation Admitted in early labor at term Last Menstrual Period: Jul 08, 2016 Estimated Due Date: Apr 14, 2017 : 2 Para: 1 Care: Good Care Obstetrical Complications: None Medical Complications: None Past Family/Social History * Past Medical, Surgical, Family and Obstetric Histories reviewed from chart. Blood Type: O+ Rubella: immune RPR/VDRL: Negative GBS Status: Negative HBsAG: Negative OB Admission Exam Vital Signs Vital Signs Vital Signs Date Time Temp Pulse Resp B/P Pulse Ox O2 Delivery O2 Flow Rate FiO2 04/03/17 16:15 98.3 75 118/66 Physical Exam HEENT: WNL Heart: Rhythm Normal Lungs: Clear, Equal Abdomen: WNL Extremities: Normal Reflexes: Normal Cervical Dilatation: 3cm Effacement: 50% Station: -3 Membranes: Intact Heart Rate: 130's Accelerations: Accelerations Present Decelerations: No Decelerations Varibility: Moderate Contractions on Admission: 6-10 Minutes Apart Date/Time Contractions Began: 04/02/2017 Frequency of Contractions: Q5 Duration: >45 SECONDS Intensity: Moderate Last 72 hours Lab Results CBC & BMP 04/03/17 16:45 OB Assessment/Plan Other Assessment: Term gestation Early labor Other plan: Proceed with spontaneous labor CANDY MELENDEZ MD Apr 03, 2017 18:08
[2017-04-04] MEDS: LACTATED RINGER'S 1,000 ML IV SCH ×4 (00:42→17:09)
[2017-04-04] MEDS ORDERED: OXYTOCIN 30 UNITS/LR 500 ML IV SCH (09:30)
--- NOTE | 2017-04-04 18:30 | QN ---
Documentation Comment Patient was examined Cervix appears to be completely effaced/5 6 cm open/and presenting part vertex at -3 station AROM occurred: Amniotic fluid appeared to be clear We will continue Pitocin augmentation CANDY MELENDEZ MD Apr 04, 2017 18:30
[2017-04-04] MEDS ORDERED: FENTAnyl 2MCG/ML-ROPIV 0.2% 100 ML ONE (18:52)
[2017-04-04] MEDS ORDERED: AMPICILLIN 2 GM/NS (PMX) 100 ML ONE (19:26)
[2017-04-04] MEDS ORDERED: AMPICILLIN 2 GM/NS (PMX) 100 ML IV ONE (19:30)
[2017-04-04] MEDS ORDERED: ONDANSETRON 4 MG INJ IV PRN (19:30)
[2017-04-04] MEDS ORDERED: GENTAMICIN 120 MG/NS (PMX) 100 ML IVPB SCH (19:30)
[2017-04-04] MEDS ORDERED: EPHEDrine SULFATE 50 MG/5 ML SYG IV PRN (19:30)
[2017-04-04] MEDS ORDERED: NALOXONE (0.4 MG/ML) INJ IV PRN (19:30)
[2017-04-04] MEDS ORDERED: FENTAnyl 2MCG/ML-ROPIV 0.2% 100 ML BAG EPI SCH (19:30)
[2017-04-04] MEDS ORDERED: DIPHENHYDRAMINE 50 MG INJ IV PRN (19:30)
--- NOTE | 2017-04-04 20:11 | LDN ---
Date/Time of Note Date/Time of Note DATE: 04/04/17 TIME: 20:09 Delivery Summary Normal spontaneous vaginal delivery of a viable infant Weeks of Gestation 38 Placenta Delivered: Spontaneously, Intact & Complete Meconium: none Episiotomy: Yes Indication for episiotomy Variable deceleration of heart tones Laceration repair: Episiotomy was repaired in layers using 2-0 chromic and 2-0 Vicryl Anesthesia type: Epidural Estimated blood loss: 300 Sponge & Needle done & correct: Yes All needle counts correct: Yes Problems: Delivery Information Sex Sex: male Apgars 1 Minute: 9 5 Minute: 9 Suctioning Nose & mouth suctioned at kelley: Yes Delee suction performed: No Umbilical Cord Umbilical cord with: 3 Vessels Cord presentations: no nuchal cord Cord Blood was obtained: Yes Mother & Baby Disposition Disposition Mom & Baby to Maternity; Good: Yes (Mother and baby were recovered in good condition) Mom transferred to: Other (Maternity) Baby to NICU: No CANDY MELENDEZ MD Apr 04, 2017 20:11
[2017-04-04] MEDS ORDERED: CARBOPROST 250 MCG INJ IM PRN (22:00)
[2017-04-04] MEDS ORDERED: WITCH HAZEL/GLYCERIN PAD PR PRN (22:00)
[2017-04-04] MEDS ORDERED: ZOLPIDEM 5 MG TAB PO PRN (22:00)
[2017-04-04] MEDS ORDERED: LANOLIN 7 GM TUBE TOP PRN (22:00)
[2017-04-04] MEDS ORDERED: BENZOCAINE 20% 56 ML SPRAY TOP PRN (22:00)
[2017-04-04] MEDS ORDERED: METHYLERGONOVINE 0.2 MG INJ IM PRN (22:00)
[2017-04-04] MEDS ORDERED: DIBUCAINE 1% 30 GM OINT PR PRN (22:00)
[2017-04-04] MEDS ORDERED: OXYTOCIN 30 UNITS/LR 500 ML IV PRN (22:00)
[2017-04-04] MEDS ORDERED: ACETAMINOPHEN/CODEINE #3 TAB PO PRN ×2 (22:00)
[2017-04-04] MEDS ORDERED: MISOPROSTOL 200 MCG TAB PR PRN (22:00)
[2017-04-04 22:30] VITALS: BP 104/57; PULSE 73; RESP 18
[2017-04-04] MEDS: AMPICILLIN/SULB 3 GM/NS (PMX) 100 ML IVPB SCH (23:40)
[2017-04-04] MEDS: IBUPROFEN 600 MG TAB PO SCH (23:41)
[2017-04-05 00:24] VITALS: BP 102/75; PULSE 72; RESP 18
[2017-04-05] MEDS: LACTATED RINGER'S 1,000 ML IV* SCH ×3 (01:23→21:57)
[2017-04-05 04:18] VITALS: BP 90/50; PULSE 60; RESP 18
[2017-04-05] MEDS: IBUPROFEN 600 MG TAB PO SCH ×4 (05:35→23:32)
[2017-04-05] MEDS: AMPICILLIN/SULB 3 GM/NS (PMX) 100 ML IVPB SCH ×4 (05:35→23:32)
[2017-04-05 08:19] LABS: BASOPHILS % 0.2 % (0.0-2.0); EOSINOPHILS # 0.1 10^3/ul (0.0-0.5); EOSINOPHILS % 0.6 % (0.0-7.0); HEMATOCRIT 27.6 % (37.0-47.0); LYMPHOCYTES # 2.1 10^3/ul (0.8-2.9); LYMPHOCYTES % 17.4 % (15.0-51.0); MEAN CORPUSCULAR HEMOGLOBIN 26.9 pg (29.0-33.0); MEAN CORPUSCULAR HGB CONC 32.6 g/dl (32.0-37.0); MEAN CORPUSCULAR VOLUME 82.6 fl (82.0-101.0); MEAN PLATELET VOLUME 11.3 fl (7.4-10.4); MONOCYTE # 0.9 10^3/ul (0.3-0.9); MONOCYTES % 7.2 % (0.0-11.0); NEUTROPHIL # 8.9 10^3/ul (1.6-7.5); NEUTROPHILS % 74.2 % (39.0-77.0); PLATELET COUNT 217 10^3/UL (140-415); RED BLOOD COUNT 3.34 10^6/ul (4.20-5.40); RED CELL DISTRIBUTION WIDTH 13.1 % (11.5-14.5)
[2017-04-05 08:32] VITALS: BP 105/68; PULSE 62; RESP 16
[2017-04-05] MEDS: MAGNESIUM HYDROXIDE 30ML CUP PO SCH ×2 (09:25→21:00)
[2017-04-05] MEDS: SENNA/DOCUSATE NA (8.6MG/50MG) TAB PO SCH ×2 (09:25→21:45)
--- NOTE | 2017-04-05 13:46 | DS ---
Date/Time of Note Date/Time of Note Home next day DATE: 04/05/17 TIME: 13:45 Obstetrical Discharge Record Final Diagnosis Final Diagnosis: Term delivered Other Final Diagnosis Status post vaginal delivery Vaginal Delivery Obstetrical Delivery: Spontaneous, Episiotomy, Repaired Complications Augmentation: Yes Condition on Discharge Physical Assessment Last Vitals: See nurse's notes Voiding: Yes Bowel Movement: Yes Breast: Soft, non-tender, Filling Fundus: Firm Abdomen and Incision: Soft bowel sounds positive Fundus at umbilicus Episiotomy: Healing Calf Tenderness: No Patient Condition: Good CANDY MELENDEZ MD Apr 05, 2017 13:45
--- NOTE | 2017-04-05 13:46 | PD.PPDC ---
[employer] [facility] Discharge Instruction Provider Information Physician Information 31-year-old female had vaginal delivery Diagnosis Final Diagnosis: Status post vaginal delivery Condition Patient Condition: Good Diet Diet: Resume Regular Diet Activity/Restrictions Activity: Normal Activity May Shower Restrictions: Nothing in the Vagina Return to Work or School: May 19, 2017 Follow-up Follow-up with Physician: 4, Week/Weeks (In clinic) Return to clinic for OB Instructions: Breast Tenderness Depression CANDY MELENDEZ MD Apr 05, 2017 13:46
[2017-04-05] MEDS ORDERED: IBUP-1542 PO ×2 (13:47→14:23)
[2017-04-05 15:06] VITALS: BP 107/64; PULSE 78; RESP 15
[2017-04-05 16:00] VITALS: BP 112/64; PULSE 72; RESP 17
[2017-04-05 19:45] VITALS: BP 114/72; PULSE 80; RESP 18
[2017-04-06 04:10] VITALS: BP 107/77; PULSE 65; RESP 17
[2017-04-06] MEDS: IBUPROFEN 600 MG TAB PO SCH (05:44)
[2017-04-06] MEDS: AMPICILLIN/SULB 3 GM/NS (PMX) 100 ML IVPB SCH ×2 (05:44→10:17)
[2017-04-06] MEDS: LACTATED RINGER'S 1,000 ML IV* SCH (05:57)
[2017-04-06 08:45] VITALS: BP 111/66; PULSE 72; RESP 16
[2017-04-06] MEDS ORDERED: DIPHTH/TET/ACEL PERTUSS (ADULT) 0.5 ML VIAL IM* ONE (09:00)
[2017-04-06] MEDS: SENNA/DOCUSATE NA (8.6MG/50MG) TAB PO SCH (09:00)
[2017-04-06] MEDS ORDERED: VARICELLA VACCINE LIVE/PF 1,350 UNIT/0.5 ML ML SC* ONE (09:00)
[2017-04-06] MEDS: MAGNESIUM HYDROXIDE 30ML CUP PO SCH (09:00)
[2017-04-06] MEDS ORDERED: MEASLES,MUMPS,RUBELLA VACCINE INJ SC* ONE (09:00)
== END 2017-04-06 15:30 | disposition home or self-care (01) | DRG 775 ==
LOC: OBT 15:36 → L-D 15:38 → OBT 16:20 → L-D 16:20 → PP1 04-04 22:25
PROVIDERS: ADMIT Obstetrics & Gynecology; ATTEND Obstetrics & Gynecology
PROC: 10E0XZZ Delivery of Products of Conception, External Approach (ICD-10-PCS; principal; 2017-04-04)
PROC: 0W8NXZZ Division of Female Perineum, External Approach (ICD-10-PCS; 2017-04-04)
DX: O80 Encounter for full-term uncomplicated delivery (principal); O77.8 Labor and delivery complicated by other evidence of fetal stress; Z3A.38 38 weeks gestation of pregnancy; Z37.0 Single live birth
CPT/HCPCS: 62319; 85025; 85610; 85730; 86592; 86900; 86901; 87340; 90715; 90716; G0463; J0290; J0295; J0595; J1580; J2590; J3010; J7120

== ENCOUNTER 2017-08-07 09:38 | Emergency (ER) | payer MEDICAID ==
[~2017-08-07] VITALS: Ht 162.6 cm; Wt 61.1 kg
[~2017-08-07 09:38] MED LIST changes: +IBUP-1542 PO
[2017-08-07 09:41] VITALS: Ht 162.6 cm; Wt 61.1 kg
[2017-08-07] MEDS ORDERED: CLINDAMYCIN 300 MG CAP PO ONE (10:00)
[2017-08-07] MEDS ORDERED: ACETAMINOPHEN 325 MG TAB PO ONE (10:00)
[2017-08-07] MEDS ORDERED: CLIN-73 PO (10:09)
[2017-08-07] MEDS ORDERED: TYL500 PO (10:09)
--- NOTE | 2017-08-07 10:33 | ERD ---
ER Documentation Chief Complaint Chief Complaint right breast pain/redness and fever x 2 days HPI This is a 32-year-old female that presents to the ER with right breast pain, redness and pain that started 2 days ago. Patient also has associated fevers, she is taking ibuprofen for her fevers. Patient states that she is currently breast-feeding her old . Patient denies any chest pain or shortness of breath. Described as throbbing in quality, her breasts feel very full pain is nonradiating. Patient states that she is still pumping breast milk. ROS 12 point review of systems was done, all negative except per HPI. Medications Home Meds Active Scripts Acetaminophen* (Tylenol*) 500 Mg Tab, 500 MG PO Q4H Y for MILD PAIN LEVEL 1-3, # 30 TAB Prov:WILEY OBRIEN 08/07/17 Clindamycin Hcl* (Clindamycin Hcl*) 300 Mg Capsule, 300 MG PO TID for 10 Days, CAP Prov:WILEY OBRIEN 08/07/17 Ibuprofen* (Ibuprofen*) 600 Mg Tablet, 600 MG PO Q6, #30 TAB 0 Refills Prov:CANDY MELENDEZ MD 04/05/17 Reported Medications Vit W-Ca,Fe,FA(<1 mg) ( Vitamins) 1 Each Tablet, 1 EACH PO DAILY, TAB 11/25/16 Allergies Allergies: Coded Allergies: No Known Drug Allergy (Verified Allergy, Unknown, 08/07/17) PMhx/Soc Medical and Surgical Hx: pt denies Medical Hx History of Surgery: Yes (appendectomy) Anesthesia Reaction: No Hx Neurological Disorder: No Hx Respiratory Disorders: Yes Hx Cardiac Disorders: No Hx Psychiatric Problems: No Hx Miscellaneous Medical Probl: No Hx Alcohol Use: No Hx Substance Use: No Hx Tobacco Use: No Smoking Status: Never smoker Physical Exam Vitals Vital Signs Date Time Temp Pulse Resp B/P Pulse Ox O2 Delivery O2 Flow Rate FiO2 08/07/17 09:41 98.8 126 18 119/68 98 Physical Exam GENERAL: The patient is well developed and appropriate for usual state of health , in no apparent distress. HEENT: Atraumatic CHEST: Clear to auscultation bilaterally. There are no rales, wheezes or rhonchi. BREAST: right breast has an area of erythema, warmth to the touch and painful to palpation, no areas of fluctuance HEART: Regular rate and rhythm. No murmurs, clicks, rubs or gallops. NEURO: Alert and oriented. Results 24 hrs Current Medications Medications (Trade) Dose Ordered Sig/Joellen Route PRN Reason Start Time Stop Time Status Last Admin Dose Admin Acetaminophen (Tylenol Tab) 650 mg ONCE ONCE PO 08/07/17 10:00 08/07/17 10:01 DC 08/07/17 10:12 Clindamycin HCl (Cleocin) 300 mg ONCE ONCE PO 08/07/17 10:00 08/07/17 10:01 DC 08/07/17 10:13 Procedures/MDM Differential diagnosis includes but is not limited to; lactational mastitis, severe engorgement, abscess, plugged duct, galactocele, inflammatory breast cancer. Likely lactational mastitis patient is currently breast-feeding. Patient is afebrile and well-appearing in the ER. She was given first dose of antibiotics here. She will be sent home with a 10 day course of clindamycin. I advised patient to follow-up with her primary care doctor within 1-2 days and to make sure that her symptoms completely resolved. Patient should return to ER sooner if symptoms worsen. My medical decision making shared with the patient she understands and agrees with plan. Departure Diagnosis: Primary Impression: Mastitis Condition: Stable Patient Instructions: Mastitis Additional Instructions: Call your primary care doctor TOMORROW for an appointment during the next 1-2 days.See the doctor sooner or return here if your condition worsens before your appointment time. WILEY OBRIEN Aug 07, 2017 10:33
== END 2017-08-07 10:17 | disposition home or self-care (01) ==
LOC: FTE 09:38
DX: N61.0 Mastitis without abscess (principal)
CPT/HCPCS: Z7502; Z7610; 99283

== ENCOUNTER 2018-04-21 11:56 | Emergency (ER) | END 2018-04-21 16:33 | disposition home or self-care (01) ==

== ENCOUNTER 2018-04-22 01:31 | Emergency (ER) | END 2018-04-22 06:06 | disposition home or self-care (01) ==